=== PATIENT | male | born 1995 | race Caucasian/White ===

== ENCOUNTER 2018-06-28 17:41 | Emergency (ER) | payer BC, OTHER ==
[~2018-06-28] VITALS: Ht 172.7 cm; Wt 83.9 kg
--- OUTSIDE RECORDS SUMMARY | 2018-06-28 17:46 | XMS REPORT ---
Author Author Chang Osman [facility] Address [address] [place] [address] Care Team Providers Care Gluing Machine Operator Electronic Name Role Phone Chang Osman Unavailable PROBLEMS Type Condition ICD9-CM Code EST02-SZ Code Onset Dates Condition Status SNOMED Code Problem OCD (obsessive compulsive disorder) 300.3 Active 458521886 Problem Anxiety 300.00 Active 20137559 Problem Attention deficit disorder F98.8 Active 747431783 Problem Chest pain, unspecified R07.9 Active 54660345 Problem Chest wall pain R07.89 Active 685534086 Problem Syncope, unspecified syncope type R55 Active 250402381 Problem Atypical chest pain R07.89 Active 543244659 Problem Elevated LFTs R79.89 Active 855427014 Problem Shortness of breath R06.02 Active 903885883 ALLERGIES No Information ENCOUNTERS Encounter Location Date Diagnosis [facility] [place] [address] [place] [address] May, Medication management Z79.899 [facility] [place] [address] [place] [address] Apr, Medication management Z79.899 [facility] [place] [address] [place] [address] Mar, Medication management Z79.899 [facility] [place] [address] [place] [address] Feb, Medication management Z79.899 [facility] [place] [address] [place] [address] Dec, Medication management Z79.899 [facility] [place] [address] [place] [address] Nov, Medication management Z79.899 and Attention deficit disorder F98.8 [facility] [place] [address] [place] [address] Sep, Medication management Z79.899 and Attention deficit disorder F98.8 [facility] [address] [place] [address] Apr, Medication management Z79.899 and Attention deficit disorder F98.8 [facility] [address] [place] [address] Oct, [facility] [address] [place] [address] Oct, [facility] [address] [place] [address] Sep, Immunization due Z23 [facility] [address] [place] [address] June, Elevated LFTs R79.89 [facility] [place] [address] [place] [address] June, [facility] [place] [address] [place] [address] June, Elevated LFTs R79.89 [facility] [place] [address] [place] [address] May, [facility] [place] [address] [place] [address] May, Chest wall pain R07.89 ; Elevated liver function tests R79.89 and Elevated LFTs R79.89 [facility] [place] [address] [place] [address] Apr, Acute upper respiratory infection, unspecified J06.9 and Elevated LFTs R79.89 [facility] [place] [address] [place] [address] Feb, Elevated LFTs R79.89 [facility] [place] [address] [place] [address] Feb, Elevated LFTs R79.89 [facility] [address] [place] [address] Feb, Syncope, unspecified syncope type R55 ; Elevated liver enzymes R74.8 ; Atypical chest pain R07.89 and URI (upper respiratory infection) J06.9 [facility] [address] [place] [address] Jan, Chest pain, unspecified R07.9 and Shortness of breath R06.02 [facility] [address] [place] [address] Jan, [facility] [address] [place] [address] Jan, Elevated LFTs R79.89 [facility] [address] [place] [address] Jan, Elevated LFTs R79.89 [facility] [address] [place] [address] Jan, Syncope, unspecified syncope type R55 and Atypical chest pain R07.89 [facility] [address] [place] [address] Jan, Syncope, unspecified syncope type R55 [facility] [address] [place] [address] Jan, [facility] [place] [address] [place] [address] Jan, Syncope, unspecified syncope type R55 and Atypical chest pain R07.89 [facility] [address] [place] [address] Dec, [facility] [place] [address] [place] [address] Nov, [facility] [address] [place] [address] Nov, [facility] [address] [place] [address] Oct, Upper respiratory infections of unspecified site, Acute 465.9 [facility] [address] [place] [address] Jul, Upper respiratory infections of unspecified site, Acute 465.9 [facility] [place] [address] May, Backache, Unspecified 724.5 and Muscle Spasm 728.85 [facility] [address] [place] [address] May, [facility] [address] [place] [address] Apr, [facility] [address] [place] [address] Apr, Upper respiratory infections of unspecified site, Acute 465.9 [facility] [address] [place] [address] Apr, [facility] [address] [place] [address] Mar, [facility] [address] [place] [address] Mar, Upper respiratory infections of unspecified site, Acute 465.9 [facility] [address] [place] [address] Mar, [facility] [address] [place] [address] Mar, [facility] [address] [place] [address] Mar, [facility] [address] [place] [address] Feb, [facility] [address] [place] [address] Feb, [facility] [address] [place] [address] Feb, [facility] [address] [place] [address] Dec, Pharyngitis 462 and Attention deficit disorder 314.00 [facility] [address] [place] [address] Dec, [facility] [address] [place] [address] Dec, [facility] [address] [place] [address] Oct, Attention deficit disorder 314.00 [facility] [address] [place] [address] Sep, Attention deficit disorder 314.00 [facility] [address] [place] [address] Feb, [facility] [address] [place] [address] Dec, Routine or child health check V20.2 [facility] [address] [place] [address] Feb, Upper respiratory infections of unspecified site, Acute 465.9 [facility] [address] [place] [address] Dec, [facility] [address] [place] [address] Dec, [facility] [address] [place] [address] Dec, Routine or child health check V20.2 ; OCD (obsessive compulsive disorder) 300.3 and Anxiety 300.00 [facility] [address] [place] [address] 02 Nov, 2011 Upper respiratory infections of unspecified site, Acute 465.9 [facility] [address] [place] [address] Jul, Acute bronchospasm 519.11 [facility] [address] [place] [address] 13 Apr, 2011 [facility] [place] [address] [place] [address] Apr, [facility] [address] [place] [address] Mar, [facility] [address] [place] [address] Dec, [facility] [address] [place] [address] Dec, [facility] [address] [place] [address] May, [facility] [place] [address] [place] [address] May, [facility] [place] [address] [place] [address] Apr, [facility] [address] [place] [address] Mar, [facility] [address] [place] [address] Feb, [facility] [place] [address] [place] [address] Oct, [facility] [address] [place] [address] 14 Jul, 2009 [facility] [address] [place] [address] June, [facility] [address] [place] [address] Jan, [facility] [address] [place] [address] 15 Oct, 2008 IMMUNIZATIONS No Known Immunizations SOCIAL HISTORY Never Assessed REASON FOR VISIT refill adderall PLAN OF CARE VITAL SIGNS MEDICATIONS Medication Instructions Dosage Frequency Start Date End Date Duration Status Adderall 20 mg Orally BID 1 tablet 12h Apr, 30 days Active RESULTS No Results PROCEDURES No Known procedures INSTRUCTIONS MEDICATIONS ADMINISTERED No Known Medications MEDICAL (GENERAL) HISTORY Type Description Date Medical History anxiety with component of obsessive compulsive disorder Medical History chronic abdominal pain with constipation
--- OUTSIDE RECORDS SUMMARY | 2018-06-28 17:47 | XMS REPORT ---
Author Author Chang Osman Organization [employer] Address Unknown Phone Unavailable Care Team Providers Care Pegger Name Role Phone Chang Osman Unavailable Allergies No Known Allergies Problems Problem Type Condition Code Onset Dates Condition Status Problem OCD (obsessive compulsive disorder) 300.3 Active Problem Anxiety 300.00 Active Problem Attention deficit disorder 314.00 Active Medications No Known Medications Results No Known Results Summary Purpose [employer] Submission
--- OUTSIDE RECORDS SUMMARY | 2018-06-28 17:47 | XMS REPORT ---
Author Author Chang Osman [facility] [employer] Address Unknown Phone Unavailable Care Team Providers Care Orthodontic Assistant Name Role Phone Chang Osman Unavailable Allergies No Known Allergies Problems Problem Type Condition Code Onset Dates Condition Status Problem Syncope, unspecified syncope type R55 Active Problem Atypical chest pain R07.89 Active Problem Elevated LFTs R79.89 Active Problem Anxiety 300.00 Active Problem Attention deficit disorder 314.00 Active Problem OCD (obsessive compulsive disorder) 300.3 Active Medications No Known Medications Results No Known Results Summary Purpose [employer] Submission
--- OUTSIDE RECORDS SUMMARY | 2018-06-28 17:47 | XMS REPORT ---
Author Author Chang Osman [facility] [employer] Address Unknown Phone Unavailable Care Team Providers Care Billing Representative Name Role Phone Chang Osman Unavailable Allergies No Known Allergies Problems Problem Type Condition Code Onset Dates Condition Status Problem Syncope, unspecified syncope type R55 Active Problem Atypical chest pain R07.89 Active Problem Elevated LFTs R79.89 Active Problem Anxiety 300.00 Active Assessment Elevated LFTs R79.89 Active Problem Attention deficit disorder 314.00 Active Problem OCD (obsessive compulsive disorder) 300.3 Active Medications No Known Medications Results No Known Results Summary Purpose [employer] Submission
--- OUTSIDE RECORDS SUMMARY | 2018-06-28 17:47 | XMS REPORT ---
Author Author Chang Osman Organization [employer] Address Unknown Phone Unavailable Care Team Providers Care Portable Machine Sander Name Role Phone Chang Osman Unavailable Allergies No Known Allergies Problems Problem Type Condition Code Onset Dates Condition Status Problem Atypical chest pain R07.89 Active Problem Attention deficit disorder 314.00 Active Problem Syncope, unspecified syncope type R55 Active Problem OCD (obsessive compulsive disorder) 300.3 Active Problem Anxiety 300.00 Active Medications No Known Medications Results No Known Results Summary Purpose [employer] Submission
--- OUTSIDE RECORDS SUMMARY | 2018-06-28 17:47 | XMS REPORT ---
Author Author Chang Osman Organization [employer] Address Unknown Phone Unavailable Care Team Providers Care Supervisor Shed Workers Name Role Phone Chang Osman CP Unavailable Allergies, Adverse Reactions, Alerts Substance Reaction Event Type N.K.D.A. Info Not Available Non Drug Allergy Problems Problem Type Condition Code Onset Dates Condition Status Assessment Elevated liver enzymes R74.8 Active Problem Anxiety 300.00 Active Assessment Syncope, unspecified syncope type R55 Active Assessment URI (upper respiratory infection) J06.9 Active Assessment Atypical chest pain R07.89 Active Problem Shortness of breath R06.02 Active Problem Elevated LFTs R79.89 Active Problem Chest pain, unspecified R07.9 Active Problem Attention deficit disorder 314.00 Active Problem OCD (obsessive compulsive disorder) 300.3 Active Problem Syncope, unspecified syncope type R55 Active Problem Atypical chest pain R07.89 Active Medications Medication Code System Code Instructions Start Date End Date Status Dosage Ibuprofen [facility] [address]-95 200 MG Orally every 6 hrs 1 tablet as needed Procedures Procedure Coding System Code Date COMP PROFILE CPT-4 02184 Mar 08, 2015 EBV, Nuclear Ag CPT-4 66853 Mar 08, 2015 CBC CPT-4 24162 Mar 08, 2015 Cytomegalovirus (CMV). IgM CPT-4 01111 Mar 08, 2015 FADI CHANCE, Viral Capsid CPT-4 76278 Mar 08, 2015 Culture, Presumptive, Screening CPT-4 07182 Mar 08, 2015 Cytomegalovirus, IgG CPT-4 30388 Mar 08, 2015 Vital Signs Date/Time: Mar 08, 2015 Blood Pressure Systolic 132 mm Hg Height 69.5 in Weight 191.8 lbs Wt Percentile 92.73 % BMI 27.91 Index Temperature 98.5 F Blood Pressure Diastolic 72 mm Hg Ht Percentile 53.66 % BMIPercentile 93.69 % Results No Known Results Summary Purpose [employer] Submission
--- OUTSIDE RECORDS SUMMARY | 2018-06-28 17:47 | XMS REPORT ---
Author Author Chang Osman [facility] [employer] Address Unknown Phone Unavailable Care Team Providers Care Cloth Bolt Bander Name Role Phone Chang Osman CP Unavailable Allergies No Known Allergies Problems Problem Type Condition Code Onset Dates Condition Status Problem Anxiety 300.00 Active Assessment Elevated LFTs R79.89 Active Problem Shortness of breath R06.02 Active Problem Elevated LFTs R79.89 Active Problem Chest pain, unspecified R07.9 Active Problem Attention deficit disorder 314.00 Active Problem OCD (obsessive compulsive disorder) 300.3 Active Problem Syncope, unspecified syncope type R55 Active Problem Atypical chest pain R07.89 Active Medications No Known Medications Procedures Procedure Coding System Code Date ABDOMINAL LIMITED CPT-4 08438 Mar 20, 2015 Results No Known Results Summary Purpose [employer] Submission
--- OUTSIDE RECORDS SUMMARY | 2018-06-28 17:47 | XMS REPORT ---
Author Author Chang Osman [facility] [employer] Address Unknown Phone Unavailable Care Team Providers Care Tablet Machine Operator Name Role Phone Chang Osman Unavailable Allergies No Known Allergies Problems Problem Type Condition Code Onset Dates Condition Status Problem Atypical chest pain R07.89 Active Problem Attention deficit disorder 314.00 Active Problem Syncope, unspecified syncope type R55 Active Assessment Syncope, unspecified syncope type R55 Active Assessment Atypical chest pain R07.89 Active Problem OCD (obsessive compulsive disorder) 300.3 Active Problem Anxiety 300.00 Active Medications No Known Medications Results No Known Results Summary Purpose [employer] Submission
--- OUTSIDE RECORDS SUMMARY | 2018-06-28 17:47 | XMS REPORT ---
Author Author Chang Osman Organization [employer] Address Unknown Phone Unavailable Care Team Providers Care Computer Aided Design Technician Name Role Phone Chang Osman Unavailable Allergies No Known Allergies Problems Problem Type Condition Code Onset Dates Condition Status Problem OCD (obsessive compulsive disorder) 300.3 Active Problem Anxiety 300.00 Active Problem Attention deficit disorder 314.00 Active Medications Medication Code System Code Instructions Start Date End Date Status Dosage Biaxin [facility] [address]-65 500 MG Orally Twice a day Dec 01, 2014 1 tablet Results No Known Results Summary Purpose [employer]ClinicalWorks Submission
--- OUTSIDE RECORDS SUMMARY | 2018-06-28 17:47 | XMS REPORT ---
Author Author Chang Osman [facility] Address [address] [place] [address] Care Team Providers Care Director Of Retail Marketing Name Role Phone Chang Osman Unavailable PROBLEMS Type Condition ICD9-CM Code [id number] Code Onset Dates Condition Status SNOMED Code Problem OCD (obsessive compulsive disorder) 300.3 Active 274876175 Problem Attention deficit disorder F98.8 Active 275634616 Problem Anxiety 300.00 Active 18175962 Problem Chest wall pain R07.89 Active 667977468 Problem Chest pain, unspecified R07.9 Active 53559275 Problem Atypical chest pain R07.89 Active 749988907 Problem Syncope, unspecified syncope type R55 Active 005038444 Problem Shortness of breath R06.02 Active 288901203 Problem Elevated LFTs R79.89 Active [id number] ALLERGIES No Information ENCOUNTERS Encounter Location Date Diagnosis [facility] [address] [place] [address] Sep, Medication management Z79.899 and Attention deficit disorder F98.8 [facility] [address] [place] [address] Apr, Medication management Z79.899 and Attention deficit disorder F98.8 [facility] [address] [place] [address] Oct, [facility] [address] [place] [address] Oct, [facility] [address] [place] [address] Sep, Immunization due Z23 [facility] [address] [place] [address] June, Elevated LFTs R79.89 [facility] [address] [place] [address] June, [facility] [address] [place] [address] June, Elevated LFTs R79.89 [facility] [place] [address] May, [facility] [place] [address] May, Chest wall pain R07.89 ; Elevated liver function tests R79.89 and Elevated LFTs R79.89 [facility] [place] [address] Apr, Acute upper respiratory infection, unspecified J06.9 and Elevated LFTs R79.89 [facility] [place] [address] Feb, Elevated LFTs R79.89 [facility] [place] [address] Feb, Elevated LFTs R79.89 [facility] [place] [address] Feb, Syncope, unspecified syncope type R55 ; Elevated liver enzymes R74.8 ; Atypical chest pain R07.89 and URI (upper respiratory infection) J06.9 [facility] [place] [address] Jan, Chest pain, unspecified R07.9 and Shortness of breath R06.02 [facility] [place] [address] Jan, [facility] [place] [address] Jan, Elevated LFTs R79.89 [facility] [place] [address] Jan, Elevated LFTs R79.89 [facility] [place] [address] Jan, Syncope, unspecified syncope type R55 and Atypical chest pain R07.89 [facility] [place] [address] Jan, Syncope, unspecified syncope type R55 [facility] [place] [address] Jan, [facility] [place] [address] Jan, Syncope, unspecified syncope type R55 and Atypical chest pain R07.89 [facility] [address] [place] [address] Dec, [facility] [address] [place] [address] Nov, [facility] [address] [place] [address] Nov, [facility] [address] [place] [address] 24 Oct, 2014 Upper respiratory infections of unspecified site, Acute 465.9 [facility] [address] [place] [address] Jul, Upper respiratory infections of unspecified site, Acute 465.9 [facility] [address] [place] [address] May, Backache, Unspecified 724.5 and Muscle Spasm 728.85 [facility] [address] [place] [address] May, [facility] [address] [place] [address] Apr, [facility] [address] [place] [address] Apr, Upper respiratory infections of unspecified site, Acute 465.9 [facility] [address] [place] [address] Apr, [facility] [address] [place] [address] Mar, [facility] [address] [place] [address] Mar, Upper respiratory infections of unspecified site, Acute 465.9 [facility] [address] [place] [address] Mar, [facility] [address] [place] [address] Mar, [facility] [address] [place] [address] Mar, [facility] [address] [place] [address] Feb, [facility] [address] [place] [address] Feb, [facility] [address] [place] [address] Feb, [facility] [address] [place] [address] Dec, Pharyngitis 462 and Attention deficit disorder 314.00 [facility] [address] [place] [address] Dec, [facility] [address] [place] [address] Dec, [facility] [address] [place] [address] Oct, Attention deficit disorder 314.00 [facility] [address] [place] [address] Sep, Attention deficit disorder 314.00 [facility] [address] [place] [address] Feb, [facility] [address] [place] [address] Dec, Routine infant or child health check V20.2 [facility] [address] [place] [address] Feb, Upper respiratory infections of unspecified site, Acute 465.9 [facility] [address] [place] [address] Dec, [facility] [address] [place] [address] Dec, [facility] [address] [place] [address] Dec, Routine or child health check V20.2 ; OCD (obsessive compulsive disorder) 300.3 and Anxiety 300.00 [facility] [address] [place] [address] Nov, Upper respiratory infections of unspecified site, Acute 465.9 [facility] [address] [place] [address] Jul, Acute bronchospasm 519.11 [facility] [address] [place] [address] Apr, [facility] [address] [place] [address] Apr, [facility] [address] [place] [address] Mar, [facility] [address] [place] [address] Dec, [facility] [address] [place] [address] Dec, [facility] [address] [place] [address] May, [facility] [address] [place] [address] May, [facility] [address] [place] [address] Apr, [facility] [address] [place] [address] Mar, [facility] [address] [place] [address] Feb, [facility] [address] [place] [address] Oct, [facility] [address] [place] [address] 14 Jul, 2009 [facility] [address] [place] [address] June, [facility] [address] [place] [address] Jan, [facility] [address] [place] [address] 15 Oct, 2008 IMMUNIZATIONS No Known Immunizations [...]
--- OUTSIDE RECORDS SUMMARY | 2018-06-28 17:47 | XMS REPORT ---
Author Author Chang Osman Organization [employer] Address Unknown Phone Unavailable Care Team Providers Care Laborer [employer]oder Farm Name Role Phone Chang Osman CP Unavailable Allergies, Adverse Reactions, Alerts Substance Reaction Event Type N.K.D.A. Info Not Available Non Drug Allergy Problems Problem Type Condition ICD-9 Code Onset Dates Condition Status Problem OCD (obsessive compulsive disorder) 300.3 Active Problem Anxiety 300.00 Active Problem Attention deficit disorder 314.00 Active Assessment Pharyngitis 462 Active Assessment Attention deficit disorder 314.00 Active Medications Medication Code System Code Instructions Start Date End Date Status Dosage Methylphenidate HCl [facility] [address]-73 10 MG Orally Once a day Dec 28, 2013 Active 1 tablet Procedures Procedure Coding System Code Date OFFICE VISITEST PT CPT-4 28929 Jan 04, 2014 Vital Signs Date/Time: Jan 04, 2014 Blood Pressure Systolic 110 mm Hg Height 69.5 in Weight 184 lbs Wt Percentile 93.36 % BMI 26.78 Index Temperature 97.7 F Blood Pressure Diastolic 72 mm Hg Ht Percentile 61.38 % BMIPercentile 93.04 % Results No Known Results Summary Purpose eClinicalWorks Submission
--- OUTSIDE RECORDS SUMMARY | 2018-06-28 17:47 | XMS REPORT ---
Author Author Chang Osman [facility] Address [address] [place] [address] Care Team Providers Care Dandy Operator Name Role Phone Chang Osman Unavailable PROBLEMS Type Condition ICD9-CM Code [id number] Code Onset Dates Condition Status SNOMED Code Problem OCD (obsessive compulsive disorder) 300.3 Active 205764186 Problem Attention deficit disorder F98.8 Active 207154634 Problem Anxiety 300.00 Active 82521619 Problem Chest wall pain R07.89 Active 419480654 Problem Chest pain, unspecified R07.9 Active 19885327 Problem Atypical chest pain R07.89 Active 108999847 Problem Syncope, unspecified syncope type R55 Active 098020985 Problem Shortness of breath R06.02 Active 929469554 Problem Elevated LFTs R79.89 Active 409725379 ALLERGIES No Known Allergies ENCOUNTERS Encounter Location Date Diagnosis [facility] [address] [place] [address] Nov, Medication management Z79.899 and Attention deficit disorder F98.8 [facility] [address] [place] [address] Sep, Medication management Z79.899 and Attention deficit disorder F98.8 [facility] [address] [place] [address] Apr, Medication management Z79.899 and Attention deficit disorder F98.8 [facility] [address] [place] [address] Oct, [facility] [address] [place] [address] Oct, [facility] [address] [place] [address] Sep, Immunization due Z23 [facility] [address] [place] [address] June, Elevated LFTs R79.89 [facility] [place] [address] June, [facility] [place] [address] June, Elevated LFTs R79.89 [facility] [place] [address] May, [facility] [place] [address] May, Chest wall pain R07.89 ; Elevated liver function tests R79.89 and Elevated LFTs R79.89 [facility] [place] [address] Apr, Acute upper respiratory infection, unspecified J06.9 and Elevated LFTs R79.89 [facility] [place] [address] Feb, Elevated LFTs R79.89 [facility] [place] [address] Feb, Elevated LFTs R79.89 [facility] [place] [address] Feb, Syncope, unspecified syncope type R55 ; Elevated liver enzymes R74.8 ; Atypical chest pain R07.89 and URI (upper respiratory infection) J06.9 [facility] [place] [address] Jan, Chest pain, unspecified R07.9 and Shortness of breath R06.02 [facility] [place] [address] Jan, [facility] [place] [address] Jan, Elevated LFTs R79.89 [facility] [place] [address] Jan, Elevated LFTs R79.89 [facility] [place] [address] Jan, Syncope, unspecified syncope type R55 and Atypical chest pain R07.89 [facility] [place] [address] Jan, Syncope, unspecified syncope type R55 [facility] [place] [address] Jan, [facility] [address] [place] [address] Jan, Syncope, unspecified syncope type R55 and Atypical chest pain R07.89 [facility] [address] [place] [address] Dec, [facility] [address] [place] [address] Nov, [facility] [address] [place] [address] Nov, [facility] [address] [place] [address] 24 Oct, 2014 Upper respiratory infections of unspecified site, Acute 465.9 [facility] [address] [place] [address] Jul, Upper respiratory infections of unspecified site, Acute 465.9 [facility] [address] [place] [address] May, Backache, Unspecified 724.5 and Muscle Spasm 728.85 [facility] [address] [place] [address] May, [facility] [address] [place] [address] Apr, [facility] [address] [place] [address] Apr, Upper respiratory infections of unspecified site, Acute 465.9 [facility] [address] [place] [address] Apr, [facility] [address] [place] [address] Mar, [facility] [address] [place] [address] Mar, Upper respiratory infections of unspecified site, Acute 465.9 [facility] [address] [place] [address] Mar, [facility] [address] [place] [address] Mar, [facility] [address] [place] [address] Mar, [facility] [address] [place] [address] Feb, [facility] [address] [place] [address] Feb, [facility] [address] [place] [address] 14 Feb, 2014 [facility] [address] [place] [address] 13 Dec, 2013 Pharyngitis 462 and Attention deficit disorder 314.00 [facility] [address] [place] [address] Dec, [facility] [address] [place] [address] Dec, [facility] [address] [place] [address] Oct, Attention deficit disorder 314.00 [facility] [address] [place] [address] Sep, Attention deficit disorder 314.00 [facility] [address] [place] [address] Feb, [facility] [address] [place] [address] 14 Dec, 2012 Routine or child health check V20.2 [facility] [address] [place] [address] Feb, Upper respiratory infections of unspecified site, Acute 465.9 [facility] [address] [place] [address] Dec, [facility] [address] [place] [address] Dec, [facility] [address] [place] [address] Dec, Routine or child health check V20.2 ; OCD (obsessive compulsive disorder) 300.3 and Anxiety 300.00 [facility] [address] [place] [address] Nov, Upper respiratory infections of unspecified site, Acute 465.9 [facility] [address] [place] [address] Jul, Acute bronchospasm 519.11 [facility] [address] [place] [address] Apr, [facility] [address] [place] [address] Apr, [facility] [address] [place] [address] Mar, [facility] [address] [place] [address] Dec, [facility] [address] [place] [address] Dec, [facility] [address] [place] [address] May, [facility] [address] [place] [address] May, [facility] [address] [place] [address] Apr, [facility] [address] [place] [address] Mar, [facility] [address] [place] [address] Feb, [facility] [address] [place] [address] Oct, [facility] [address] [place] [address] Jul, [facility] [address] [place] [address] June, [facility] [address] [place] [address] Jan, [facility] [address] [place] [address] Oct, IMMUNIZATIONS No Known Immunizations SOCIAL HISTORY Never Assessed REASON FOR VISIT med ck PLAN OF CARE Activity Details Follow Up 6 Months Reason: VITAL SIGNS Weight 199.4 lbs 2017-11-22 Height 69.5 in 2017-11-22 Heart Rate 87 /min 2017-11-22 BMI 29.02 kg/m2 2017-11-22 Blood pressure systolic 153 mm Hg 2017-11-22 Blood pressure diastolic 81 mm Hg 2017-11-22 MEDICATIONS Medication Instructions Dosage Frequency Start Date End Date Duration Status Adderall 20 mg Orally BID 1 tablet 12h 23 Apr, 2017 30 days Active RESULTS No Results PROCEDURES No Known procedures INSTRUCTIONS MEDICATIONS ADMINISTERED No Known Medications MEDICAL (GENERAL) HISTORY Type Description Date Medical History anxiety with component of obsessive compulsive disorder Medical History chronic abdominal pain with constipation
--- OUTSIDE RECORDS SUMMARY | 2018-06-28 17:47 | XMS REPORT ---
Author Author Chang Osman [facility] eClinicalWorks Address Unknown Phone Unavailable Care Team Providers Care Slusher Operator Name Role Phone Chang Osman Unavailable [...] disorder) 300.3 Active Medications No Known Medications Procedures Procedure Coding System Code Date MONO CPT-4 93852 Feb 04, 2015 HEPATITIS ACUTE PANL CPT-4 54173 Feb 04, 2015 LIVER PROFILE CPT-4 61174 Feb 04, 2015 Results No Known Results Summary Purpose eClinicalWorks Submission
--- OUTSIDE RECORDS SUMMARY | 2018-06-28 17:47 | XMS REPORT ---
Author Author Chang Osman [facility] e[employer] Address Unknown Phone Unavailable Care Team Providers Care Salesperson Jewelry Name Role Phone Chang Osman CP Unavailable Allergies, Adverse Reactions, Alerts Substance Reaction Event Type N.K.D.A. Info Not Available Non Drug Allergy Problems Problem Type Condition Code Onset Dates Condition Status Problem OCD (obsessive compulsive disorder) 300.3 Active Problem Anxiety 300.00 Active Problem Attention deficit disorder 314.00 Active Assessment Upper respiratory infections of unspecified site, Acute 465.9 Active Medications Medication Code System Code Instructions Start Date End Date Status Dosage Promethazine VC/Codeine [facility] [address]-07 6.25-5-10 MG/5ML Orally every 6 hrs 5 ml as needed Augmentin [facility] [address]-11 875-125 MG Orally Twice a day 1 tablet Procedures Procedure Coding System Code Date OFFICE VISITEST PT CPT-4 64947 Nov 15, 2014 Vital Signs Date/Time: Nov 15, 2014 Temperature 97.4 F Height 69.5 in Weight 190 lbs Ht Percentile 55.3 % BMIPercentile 93.64 % Wt Percentile 92.92 % BMI 27.65 Index Results No Known Results Summary Purpose eClinicalWorks Submission
--- OUTSIDE RECORDS SUMMARY | 2018-06-28 17:48 | XMS REPORT ---
Author Author Chang Osman [employer] Address Unknown Phone Unavailable Care Team Providers Care Pediatric Nephrologist Name Role Phone Chang Osman Unavailable Allergies, Adverse Reactions, Alerts Substance Reaction [...] Anxiety 300.00 Active Medications No Known Medications Procedures Procedure Coding System Code Date T4 CPT-4 71078 Jan 30, 2015 TSH CPT-4 58710 Jan 30, 2015 COMP PROFILE CPT-4 17029 Jan 30, 2015 EKG WITH INTERPRETAT CPT-4 79413 Jan 30, 2015 CBC CPT-4 48922 Jan 30, 2015 OFFICE VISITEST PT CPT-4 27510 Jan 30, 2015 CHEST XRAY 2 VIEW CPT-4 79340 Jan 30, 2015 Vital Signs Date/Time: Jan 30, 2015 Blood Pressure Systolic 142 mm Hg Ht Percentile 54.04 % Height 69.5 in Weight 197 lbs BMI 28.67 Index Oximetry 99 % Cardiac Monitoring Heart Rate 63 /min Blood Pressure Diastolic 68 mm Hg BMIPercentile 95.15 % Wt Percentile 94.42 % Results Name Result Date Reference Range Unit Abnormality Flag T4 ----T4 8.0 [id number] 4.6-12.0 ?g/dL TSH ----TSH 1.65 [id number] 0.40-5.00 ?IU/ML CBC ----MCV 88.0 [id number] 80.0-94.0 FL ----HCT 47.0 [id number] 39.0-49.0 % ----MCHC 33.6 [id number] 32.0-36.0 G/DL ----MCH 29.6 [id number] 26.0-32.0 PG ----EO# 0.2 [id number] 0.0-0.2 X10^3/UL ----PLT 328 [id number] 130-400 X10^3 ----EO% 3.2 [id number] 0.0-3.0 % H ----RDW 12.3 [id number] 11.5-15.5 % ----MO# 0.6 [id number] 0.1-0.6 X10^3/UL H ----MO% 8.1 [id number] 1.7-9.3 % ----LY# 3.0 [id number] 1.2-3.4 X10^3/UL ----BA# 0.0 [id number] 0.0-0.1 X10^3/UL ----BA% 0.4 [id number] 0.0-1.0 % ----HGB 15.8 [id number] 13.8-17.0 G/DL ----RBC 5.34 [id number] 4.50-5.70 X10^6 ----MPV 10.3 [id number] 9.0-12.1 FL ----WBC 7.3 [id number] 4.0-10.0 X10^3/UL ----NE% 47.3 [id number] 42.2-75.2 % ----NE# 3.4 [id number] 1.4-6.5 X10^3/UL ----LY% 40.9 [id number] 20.5-51.1 % COMPREHENSIVE CHEM PROFILE ----SODIUM 142 [id number] 133-145 MMOL/L ----TOTAL BILI 0.43 74893413 0.00-1.00 MG/DL ----CHLORIDE 102 [id number] 96-108 MMOL/L ----POTASSIUM 3.7 [id number] 3.3-5.1 MMOL/L ----CALCIUM 9.3 [id number] 8.7-10.3 MG/DL ----AST/SGOT 34 [id number] 5-40 U/L ----CO2 26 [id number] 23-31 MMOL/L ----TOTAL PROTEIN 7.5 [id number] 5.9-8.4 G/DL ----eGFR If Am 154 [id number] ml/min/1.73m^2 ----ALBUMIN 4.9 [id number] 3.2-5.2 G/DL ----eGFR If Non Am 127 [id number] ml/min/1.73m^2 ----BUN 11 [id number] 5-18 MG/DL ----ALT/SGPT 85 [id number] 5-40 U/L H ----ALK PHOS 146 [id number] 34-114 U/L H ----CREATININE 0.8 [id number] 0.5-1.2 MG/DL ----GLUCOSE 91 [id number] 60-99 MG/DL ----GLOBULIN 2.6 [id number] 2.0-4.4 G/DL X ray : Chest 2 views Summary Purpose eClinicalWorks Submission
--- OUTSIDE RECORDS SUMMARY | 2018-06-28 17:48 | XMS REPORT ---
Author Author Chang Osman [facility] eClinicalWorks Address Unknown Phone Unavailable Care Team Providers Care Speed Operator Name Role Phone Chang Osman Unavailable Allergies No Known Allergies Problems Problem Type Condition Code Onset Dates Condition Status Assessment Immunization due Z23 Active Problem OCD (obsessive compulsive disorder) 300.3 Active Problem Anxiety 300.00 Active Problem Chest pain, unspecified R07.9 Active Problem Shortness of breath R06.02 Active Problem Chest wall pain R07.89 Active Problem Atypical chest pain R07.89 Active Problem Attention deficit disorder 314.00 Active Problem Elevated LFTs R79.89 Active Problem Syncope, unspecified syncope type R55 Active Medications No Known Medications Procedures Procedure Coding System Code Date Administration Fee 18yrs and up 1st injection CPT-4 71220 Oct 10, 2015 Menveo MCV4 CPT-4 47709 Oct 10, 2015 Results No Known Results Immunizations Vaccine Administration Date Menveo MCV4 Oct 10, 2015 Summary Purpose eClinicalWorks Submission
--- OUTSIDE RECORDS SUMMARY | 2018-06-28 17:48 | XMS REPORT ---
Author Author Chang Osman Organization [employer] Address Unknown Phone Unavailable Care Team Providers Care Plumber Cub Name Role Phone Chang Osman CP Unavailable [...] Instructions Start Date End Date Status Dosage Cefprozil [facility] [address]-77 500 MG Orally Twice a day 1 tablet Procedures Procedure Coding System Code Date OFFICE VISITEST PT CPT-4 98012 August 01, 2014 Vital Signs Date/Time: August 01, 2014 Blood Pressure Systolic 112 mm Hg Height 69.5 in Weight 192 lbs Wt Percentile 94.14 % BMI 27.94 Index Temperature 98 F Blood Pressure Diastolic 84 mm Hg Ht Percentile 56.79 % BMIPercentile 94.52 % Results No Known Results Summary Purpose eClinicalWorks Submission
--- OUTSIDE RECORDS SUMMARY | 2018-06-28 17:48 | XMS REPORT ---
Author Author Chang Osman Organization [employer] Address Unknown Phone Unavailable Care Team Providers Care Waste Reclaimer Name Role Phone Chang Osman CP Unavailable Allergies, Adverse Reactions, Alerts Substance Reaction Event Type N.K.D.A. Info Not Available Non Drug Allergy Problems Problem Type Condition Code Onset Dates Condition Status Assessment Shortness of breath R06.02 Active Problem Anxiety 300.00 Active Assessment Chest pain, unspecified R07.9 Active Problem Shortness of breath R06.02 Active Problem Elevated LFTs R79.89 Active Problem Chest pain, unspecified R07.9 Active Problem Attention deficit disorder 314.00 Active Problem OCD (obsessive compulsive disorder) 300.3 Active Problem Syncope, unspecified syncope type R55 Active Problem Atypical chest pain R07.89 Active Medications No Known Medications Results No Known Results Summary Purpose eClinicalWorks Submission
--- OUTSIDE RECORDS SUMMARY | 2018-06-28 17:48 | XMS REPORT ---
Author Author Chang Osman Organization [employer] Address Unknown Phone Unavailable Care Team Providers Care Radiation Physicist Name Role Phone Chang Osman Unavailable Allergies No Known Allergies Problems Problem Type Condition ICD-9 Code Onset Dates Condition Status Problem OCD (obsessive compulsive disorder) 300.3 Active Problem Anxiety 300.00 Active Problem Attention deficit disorder 314.00 Active Assessment Upper respiratory infections of unspecified site, Acute 465.9 Active Medications Medication Code System Code Instructions Start Date End Date Status Dosage Augmentin [facility] [address]-51 875-125 MG Orally Twice a day 1 tablet Medrol (Seven) [facility] [address]-15 4 mg Orally as directed as directed Procedures Procedure Coding System Code Date OFFICE VISITEST PT CPT-4 88034 Apr 17, 2014 Vital Signs Date/Time: Apr 17, 2014 Temperature 97.9 F Height 69.5 in Weight 186 lbs Ht Percentile 59.2 % BMIPercentile 93.28 % Wt Percentile 93.24 % BMI 27.07 Index Results No Known Results Summary Purpose eClinicalWorks Submission
--- OUTSIDE RECORDS SUMMARY | 2018-06-28 17:48 | XMS REPORT ---
Author Author Chang Osman [facility] eClinicalWorks Address Unknown Phone Unavailable Care Team Providers Care Real Estate Broker Name Role Phone Chang Osman Unavailable Allergies [...] Syncope, unspecified syncope type R55 Active Medications Medication Code System Code Instructions Start Date End Date Status Dosage Augmentin [facility] [address]-84 875-125 MG Orally every 12 hrs Nov 16, 2015 1 tablet Results No Known Results Summary Purpose eClinicalWorks Submission
--- OUTSIDE RECORDS SUMMARY | 2018-06-28 17:48 | XMS REPORT ---
Author Author Chang Osman [facility] Address [address] [place] [address] Care Team Providers Care Senior Site Manager Name Role Phone Chang Osman Unavailable PROBLEMS Type Condition ICD9-CM Code [id number] Code Onset Dates Condition Status SNOMED Code Problem Anxiety 300.00 Active 83911127 Problem Attention deficit disorder F98.8 Active 555638941 Problem OCD (obsessive compulsive disorder) 300.3 Active 988617968 Problem Chest wall pain R07.89 Active 184069832 Problem Chest pain, unspecified R07.9 Active 11120819 Problem Syncope, unspecified syncope type R55 Active 375216033 Problem Atypical chest pain R07.89 Active 824962103 Problem Shortness of breath R06.02 Active 591757880 Problem Elevated LFTs R79.89 Active 184425514 ALLERGIES No Known Allergies ENCOUNTERS Encounter Location Date Diagnosis [facility] [address] [place] [id number] Apr, Medication management Z79.899 and Attention deficit disorder F98.8 [facility] [place] [address] [place] [address] Oct, [facility] [address] [place] [address] Oct, [facility] [address] [place] [address] Sep, Immunization due Z23 [facility] [address] [place] [address] June, Elevated LFTs R79.89 [facility] [address] [place] [address] June, [facility] [address] [place] [address] June, Elevated LFTs R79.89 [facility] [address] [place] [address] May, [facility] [address] [place] [address] May, Chest wall pain R07.89 ; Elevated liver function tests R79.89 and Elevated LFTs R79.89 [facility] [address] [place] [address] Apr, Acute upper respiratory infection, unspecified J06.9 and Elevated LFTs R79.89 [facility] [address] [place] [address] Feb, Elevated LFTs R79.89 [facility] [place] [address] Feb, Elevated LFTs R79.89 [facility] [place] [address] Feb, Syncope, unspecified syncope type R55 ; Elevated liver enzymes R74.8 ; Atypical chest pain R07.89 and URI (upper respiratory infection) J06.9 [facility] [place] [address] Jan, Chest pain, unspecified R07.9 and Shortness of breath R06.02 [facility] [place] [address] Jan, [facility] [address] [place] [address] Jan, Elevated LFTs R79.89 [facility] [place] [address] Jan, Elevated LFTs R79.89 [facility] [place] [address] Jan, Syncope, unspecified syncope type R55 and Atypical chest pain R07.89 [facility] [place] [address] Jan, Syncope, unspecified syncope type R55 [facility] [address] [place] [address] Jan, [facility] [place] [address] Jan, Syncope, unspecified syncope type R55 and Atypical chest pain R07.89 [facility] [place] [address] [place] [address] Dec, [facility] [place] [address] Nov, [facility] [address] [place] [address] Nov, [facility] [address] [place] [address] Oct, Upper respiratory infections of unspecified site, Acute 465.9 [facility] [address] [place] [address] Jul, Upper respiratory infections of unspecified site, Acute 465.9 [facility] [address] [place] [id number] May, Backache, Unspecified 724.5 and Muscle Spasm 728.85 [facility] [address] [place] [address] May, [facility] [address] [place] [address] Apr, [facility] [address] [place] [address] Apr, Upper respiratory infections of unspecified site, Acute 465.9 [facility] [address] [place] [address] Apr, [facility] [address] [place] [address] Mar, [facility] [address] [place] [address] Mar, Upper respiratory infections of unspecified site, Acute 465.9 [facility] [address] [place] [address] Mar, [facility] [address] [place] [address] Mar, [facility] [address] [place] [address] Mar, [facility] [address] [place] [address] Feb, [facility] [address] [place] [address] Feb, [facility] [address] [place] [address] Feb, [facility] [address] [place] [address] Dec, Pharyngitis 462 and Attention deficit disorder 314.00 [facility] [address] [place] [address] Dec, [facility] [address] [place] [address] Dec, [facility] [address] [place] [address] Oct, Attention deficit disorder 314.00 [facility] [address] [place] [address] Sep, Attention deficit disorder 314.00 [facility] [address] [place] [address] Feb, [facility] [address] [place] [address] 14 Dec, 2012 Routine or child health check V20.2 [facility] [address] [place] [address] Feb, Upper respiratory infections of unspecified site, Acute 465.9 [facility] [address] [place] [address] Dec, [facility] [address] [place] [address] Dec, [facility] [address] [place] [address] Dec, Routine or child health check V20.2 ; OCD (obsessive compulsive disorder) 300.3 and Anxiety 300.00 [facility] [address] [place] [address] Nov, Upper respiratory infections of unspecified site, Acute 465.9 [facility] [address] [place] [address] Jul, Acute bronchospasm 519.11 [facility] [address] [place] [address] Apr, [facility] [address] [place] [address] Apr, [facility] [address] [place] [address] Mar, [facility] [address] [place] [address] Dec, [facility] [address] [place] [address] Dec, [facility] [address] [place] [address] May, [facility] [address] [place] [address] May, [facility] [address] [place] [address] 15 Apr, 2010 [facility] [address] [place] [address] 16 Mar, 2010 [facility] [address] [place] [address] Feb, [facility] [address] [place] [address] 27 Oct, 2009 [facility] [address] [place] [address] 14 Jul, 2009 [facility] [address] [place] [address] June, [facility] [address] [place] [address] Jan, [facility] [place] [address] [place] [address] Oct, IMMUNIZATIONS No Known Immunizations SOCIAL HISTORY Never Assessed REASON FOR VISIT discuss meds PLAN OF CARE Activity Details Follow Up 4 Weeks Reason: VITAL SIGNS Weight 184.6 lbs 2017-05-14 Height 69.5 in 2017-05-14 Heart Rate 74 /min 2017-05-14 BMI 26.87 kg/m2 2017-05-14 Blood pressure systolic 132 mm Hg 2017-05-14 Blood pressure diastolic 78 mm Hg 2017-05-14 MEDICATIONS Medication Instructions Dosage Frequency Start Date End Date Duration Status Adderall 10 MG Orally BID 1 tablet 12h Apr, 30 days Active Adderall 20 mg Orally BID 1 tablet 12h Apr, 30 days Active RESULTS No Results PROCEDURES No Known procedures INSTRUCTIONS MEDICATIONS ADMINISTERED No Known Medications MEDICAL (GENERAL) HISTORY Type Description Date Medical History anxiety with component of obsessive compulsive disorder Medical History chronic abdominal pain with constipation
--- OUTSIDE RECORDS SUMMARY | 2018-06-28 17:48 | XMS REPORT ---
Author Author Chang Osman [facility] eClinicalWorks Address Unknown Phone Unavailable Care Team Providers Care Water Plant Maintenance Mechanic Name Role Phone Chang Osman Unavailable Allergies [...] Date End Date Status Dosage Methylphenidate HCl [facility] [address]-09 10 MG Orally Once a day Dec 28, 2013 1 tablet Results No Known Results Summary Purpose eClinicalWorks Submission
--- OUTSIDE RECORDS SUMMARY | 2018-06-28 17:48 | XMS REPORT ---
Author Author Chang Osman Organization [employer] Address Unknown Phone Unavailable Care Team Providers Care Print Machine Operator Name Role Phone Chang Osman Unavailable Allergies No Known Allergies Problems Problem Type Condition ICD-9 Code Onset Dates Condition Status Problem OCD (obsessive compulsive disorder) 300.3 Active Problem Anxiety 300.00 Active Problem Attention deficit disorder 314.00 Active Medications No Known Medications Results No Known Results Summary Purpose eClinicalWorks Submission
--- OUTSIDE RECORDS SUMMARY | 2018-06-28 17:48 | XMS REPORT ---
Author Author Chang Osman [facility] eClinicalWorks Address Unknown Phone Unavailable Care Team Providers Care Clothing Patternmaker Name Role Phone Chang Osman Unavailable Allergies No Known Allergies Problems Problem Type Condition Code Onset Dates Condition Status Problem Atypical chest pain R07.89 Active Problem Attention deficit disorder 314.00 Active Problem Syncope, unspecified syncope type R55 Active Assessment Syncope, unspecified syncope type R55 Active Problem OCD (obsessive compulsive disorder) 300.3 Active Problem Anxiety 300.00 Active Medications No Known Medications Procedures Procedure Coding System Code Date HOLTER MONITOR OFF CPT-4 65862 Jan 31, 2015 Results No Known Results Summary Purpose eClinicalWorks Submission
--- OUTSIDE RECORDS SUMMARY | 2018-06-28 17:48 | XMS REPORT ---
Author Author Chang Osman Organization [employer] Address Unknown Phone Unavailable Care Team Providers Care Software Specialist Name Role Phone Chang Osman Unavailable Allergies No Known Allergies Problems Problem Type Condition Code Onset Dates Condition Status Problem OCD (obsessive compulsive disorder) 300.3 Active Problem Anxiety 300.00 Active Problem Attention deficit disorder 314.00 Active Medications No Known Medications Results No Known Results Summary Purpose eClinicalWorks Submission
--- OUTSIDE RECORDS SUMMARY | 2018-06-28 17:49 | XMS REPORT ---
Author Author Chang Osman [facility] eClinicalWorks Address Unknown Phone Unavailable Care Team Providers Care Provider Relations Representative Name Role Phone Chang Osman Unavailable Allergies, Adverse Reactions, Alerts Substance Reaction Event Type N.K.D.A. Info Not Available Non Drug Allergy Problems Problem Type Condition Code Onset Dates Condition Status Problem OCD (obsessive compulsive disorder) 300.3 Active Problem Anxiety 300.00 Active Problem Attention deficit disorder 314.00 Active Assessment Backache, Unspecified 724.5 Active Assessment Muscle Spasm 728.85 Active Medications No Known Medications Procedures Procedure Coding System Code Date SPINE CERVICAL CPT-4 57548 June 12, 2014 SPINE THORACIC 2 CPT-4 79027 June 12, 2014 OFFICE VISITEST PT CPT-4 25079 June 12, 2014 Vital Signs Date/Time: June 12, 2014 Temperature 97.7 F Height 69.5 in Weight 188 lbs Ht Percentile 57.93 % BMIPercentile 93.65 % Wt Percentile 93.39 % BMI 27.36 Index Results No Known Results Summary Purpose eClinicalWorks Submission
--- OUTSIDE RECORDS SUMMARY | 2018-06-28 17:49 | XMS REPORT ---
Author Author Chang Osman [facility] eClinicalWorks Address Unknown Phone Unavailable Care Team Providers Care Vending Technician Name Role Phone Chang Osman CP Unavailable [...] Instructions Start Date End Date Status Dosage Levofloxacin [facility] [address]-19 500 MG Orally Once a day 1 tablet Augmentin [facility] [address]-45 875-125 MG Orally Twice a day 1 tablet Procedures Procedure Coding System Code Date OFFICE VISITEST PT CPT-4 94003 April 24, 2014 Vital Signs Date/Time: April 24, 2014 Temperature 98.2 F Height 69.5 in Weight 185 lbs Ht Percentile 59.2 % BMIPercentile 92.97 % Wt Percentile 92.91 % BMI 26.93 Index Results No Known Results Summary Purpose eClinicalWorks Submission
--- OUTSIDE RECORDS SUMMARY | 2018-06-28 17:49 | XMS REPORT ---
Author Author Chang Osman Organization [employer] Address Unknown Phone Unavailable Care Team Providers Care Front Sight Attacher Name Role Phone Chang Osman Unavailable Allergies No Known Allergies Problems Problem Type Condition ICD-9 Code Onset Dates Condition Status Problem OCD (obsessive compulsive disorder) 300.3 Active Problem Anxiety 300.00 Active Problem Attention deficit disorder 314.00 Active Medications Medication Code System Code Instructions Start Date End Date Status Dosage Tamiflu [facility] [address]-02 75 mg Orally Twice a day Mar 07, 2014 Active 1 capsule Results No Known Results Summary Purpose eClinicalWorks Submission
--- OUTSIDE RECORDS SUMMARY | 2018-06-28 17:49 | XMS REPORT ---
Author Author Chang Osman Organization [employer] Address Unknown Phone Unavailable Care Team Providers Care Charging Board Operator Name Role Phone Chang Osman Unavailable Allergies No Known Allergies Problems Problem Type Condition ICD-9 Code Onset Dates Condition Status Problem OCD (obsessive compulsive disorder) 300.3 Active Problem Anxiety 300.00 Active Problem Attention deficit disorder 314.00 Active Medications No Known Medications Results No Known Results Summary Purpose eClinicalWorks Submission
--- OUTSIDE RECORDS SUMMARY | 2018-06-28 17:49 | XMS REPORT ---
Author Author Chang Osman Organization [employer]Works Address Unknown Phone Unavailable Care Team Providers Care Watershed Engineer Name Role Phone Chang Osman Unavailable Allergies No Known Allergies Problems Problem Type Condition Code Onset Dates Condition Status Problem OCD (obsessive compulsive disorder) 300.3 Active Problem Anxiety 300.00 Active Problem Attention deficit disorder 314.00 Active Medications No Known Medications Results No Known Results Summary Purpose eClinicalWorks Submission
--- OUTSIDE RECORDS SUMMARY | 2018-06-28 17:49 | XMS REPORT ---
Author Author Chang Osman Organization [employer] Address Unknown Phone Unavailable Care Team Providers Care Nail Puller Name Role Phone Chang Osman Unavailable Allergies No Known Allergies Problems Problem Type Condition ICD-9 Code Onset Dates Condition Status Problem OCD (obsessive compulsive disorder) 300.3 Active Problem Anxiety 300.00 Active Problem Attention deficit disorder 314.00 Active Medications No Known Medications Results No Known Results Summary Purpose eClinicalWorks Submission
--- NOTE | 2018-06-28 17:53 | NUR ---
C-collar placed at this time
[2018-06-28] MEDS ORDERED: LACTATED RINGERS 1,000 ML IV ONE (17:57)
--- NOTE | 2018-06-28 17:59 | ED Trauma-Multisystem ---
General Chief Complaint: Trauma-Non Activation Stated Complaint: R HAND LAC, PASSED OUT Nursing Triage Note: WHILE LOADING A LAWNMOWER PT STATES THE LAWNMOWER ROLLED LANDING ON TOP OF HIM. UNKNOWN LOC AT THE TIME BUT DID HAVE LOC AFTER FOR ABOUT 30SEC. PT HAS A LACERATION TO RIGHT THUMB AND WRIST. COMPLAINS OF HEAD AND RIGHT HAND PAIN. DENIES NECK PAIN AT THIS TIME. Source of Information: Patient History of Present Illness Date Seen by Provider: June 28, 2018 Time Seen by Provider: 17:50 Initial Comments PT ARRIVES VIA POV STATES HE WAS ON A RIDING LAWNMOWER, AND TRYING TO LOAD IT--GOING UP A RAMP-- AND IT FELL BACKWARDS AND LANDED ON TOP OF HIM FRIEND PULLED IT OFF HIM HIT THE BACK OF HIS HEAD STOOD UP FOR A COUPLE OF SECONDS, STARTED "SEEING STARS" AND SAT DOWN AND THEN PASSED OUT FOR APPROXIMATELY 30 SECONDS C/O PAIN TO BACK OF HEAD ALSO C/O PAIN AND LACERATION TO RIGHT HAND DENIES CHEST PAIN OR SHORTNESS OF BREATH DENIES VISION CHANGES DENIES NAUSEA/VOMITING DENIES NECK OR BACK PAIN DENIES ABDOMINAL PAIN DENIES PARESTHESIAS OR MOTOR DEFICITS DENIES PAIN ANYWHERE ELSE OCCURRED JUST PRIOR TO ARRIVAL AT HOME LAST TETANUS--UNSURE, THINKS A FEW YEARS AGO. PT IS [employer] Allergies and Home Medications Allergies Coded Allergies: No Known Drug Allergies (Unverified , 06/28/18) Patient Home Medication List Home Medication List Reviewed: Yes Review of Systems Review of Systems Constitutional: see HPI Eyes: No Symptoms Reported Ears: No Symptoms Reported Nose: No Symptoms Reported Mouth: No Symptoms Reported Throat: No Symptoms to Report Respiratory: no symptoms reported Cardiovascular: No Symptoms Reported Gastrointestinal: no symptoms reported Genitourinary: no symptoms reported Musculoskeletal: see HPI Skin: see HPI Psychiatric/Neurological: See HPI Past Rvvkziq-Kpaass-Wdumjh Hx Patient Social History Recent Foreign Travel: No Contact w/Someone Who Travel: No Recent Infectious Disease Expo: No Immunizations Up To Date Tetanus Booster (TDap): More than 5yrs Past Medical History Surgeries: Yes (EGD) Adenoidectomy, Tonsillectomy Respiratory: No Cardiac: No Neurological: No Genitourinary: No Gastrointestinal: No Musculoskeletal: No Endocrine: No HEENT: Yes (S/P T&A) Tonsilitis Cancer: No Psychosocial: No Integumentary: No Blood Disorders: No Physical Exam Vital Signs Vital Signs - First Documented 06/28/18 17:45 Temp 97.8 Pulse 80 Resp 16 B/P (MAP) 138/77 (97) Pulse Ox 99 O2 Delivery Room Air Height, Weight, BMI Height: 5'8.00" Weight: 185lbs. oz. 83.176638dw; BMI Method:Stated General Appearance: No Apparent Distress, WD/WN Head: No Evidence of Injury, Tenderness (TO OCCIPUT) Ears, Nose, Throat: Hearing Grossly Normal, No Evidence of ENT Injury, No Dental Injury Neck: Full Range of Motion, Normal Inspection, Non Tender, Supple Cardiovascular: Regular Rate, Rhythm, No Edema, No JVD, No Murmur, Normal Peripheral Pulses Respiratory: Chest Non Tender, Normal Breath Sounds, No Accessory Muscle Use, No Respiratory Distress Gastrointestinal: Normal Bowel Sounds, No Organomegaly, No Pulsatile Mass, Non Tender, Soft Back: Normal Inspection, No CVA Tenderness, No Vertebral Tenderness Extremity: Normal Capillary Refill, No Calf Tenderness, No Pedal Edema, Other ( TENDERNESS TO RIGHT HAND. HAS A FEW VERY SUPERFICIAL ABRASIONS TO DORSUM OF RIGHT HAND, WITH VERY SUPERFICIAL C-SHAPED FLAP LACERATION TO PALMAR ASPECT OF RIGHT HAND AT BASE OF 5TH FINGER--1 1/2 CM DIAMETER. MOTOR/SENSORY/VASCULAR INTACT. ) Neurologic/Psychiatric: Alert, Oriented x3, No Motor/Sensory Deficits, Normal Mood/Affect, dual hose cementer II-XII Norm as Tested Skin: Normal Color, Warm/Dry, Other (ABRASIONS/LACERATION TO RIGHT HAND ABOVE) [place] Coma Score Best Eye Response (Millie): (4) Open Spontaneously Best Verbal Response (Millie): (5) Oriented Best Motor Response ([place]): (6) Obeys Commands [place] Total: 15 Progress/Results/Core Measures Results/Orders Lab Results Laboratory Tests Test 06/28/18 16:31 06/28/18 17:58 Range/Units Prothrombin Time 13.0 12.2-14.7 SEC INR Comment 1.0 0.8-1.4 Activated Partial Thromboplast Time 25 24-35 SEC White Blood Count 9.8 4.3-11.0 10^3/uL Red Blood Count 5.32 4.35-5.85 10^6/uL Hemoglobin 16.1 13.3-17.7 G/DL Hematocrit 46 40-54 % Mean Corpuscular Volume 87 80-99 FL Mean Corpuscular Hemoglobin 30 25-34 PG Mean Corpuscular Hemoglobin Concent 35 32-36 G/DL Red Cell Distribution Width 12.2 10.0-14.5 % Platelet Count 360 130-400 10^3/uL Mean Platelet Volume 10.1 7.4-10.4 FL Neutrophils (%) (Auto) 47 42-75 % Lymphocytes (%) (Auto) 40 12-44 % Monocytes (%) (Auto) 10 0-12 % Eosinophils (%) (Auto) 4 0-10 % Basophils (%) (Auto) 1 0-10 % Neutrophils # (Auto) 4.6 1.8-7.8 X 10^3 Lymphocytes # (Auto) 3.9 1.0-4.0 X 10^3 Monocytes # (Auto) 0.9 0.0-1.0 X 10^3 Eosinophils # (Auto) 0.3 0.0-0.3 10^3/uL Basophils # (Auto) 0.1 0.0-0.1 10^3/uL Sodium Level 139 135-145 MMOL/L Potassium Level 3.3 L 3.6-5.0 MMOL/L Chloride Level 105 98-107 MMOL/L Carbon Dioxide Level 21 21-32 MMOL/L Anion Gap 13 5-14 MMOL/L Blood Urea Nitrogen 16 7-18 MG/DL Creatinine 1.04 0.60-1.30 MG/DL Estimat Glomerular Filtration Rate > 60 BUN/Creatinine Ratio 15 Glucose Level 111 H 70-105 MG/DL Calcium Level 9.7 8.5-10.1 MG/DL Corrected Calcium 8.5-10.1 MG/DL Total Bilirubin 0.5 0.1-1.0 MG/DL Aspartate Amino Transf (AST/SGOT) 61 H 5-34 U/L Alanine Aminotransferase (ALT/SGPT) 158 H 0-55 U/L Alkaline Phosphatase 81 40-136 U/L Total Protein 7.9 6.4-8.2 GM/DL Albumin 4.7 H 3.2-4.5 GM/DL Serum Alcohol < 10 <10 MG/DL My Orders Orders - KIMO CHAMBERS DO Ed Iv/Invasive Line Start (06/28/18 17:57) Monitor-Rhythm Ecg Trace Only (06/28/18 17:57) Ct Head/Cervical Spine Wo (06/28/18 17:57) Chest 1 View, Ap/Pa Only (06/28/18 17:57) Hand, Right, 3 Views (06/28/18 17:57) Alcohol (06/28/18 17:57) Cbc With Automated Diff (06/28/18 17:57) Comprehensive Metabolic Panel (06/28/18 17:57) Drug Screen Stat (Urine) (06/28/18 17:57) Protime With Inr (06/28/18 17:57) Partial Thromboplastin Time (06/28/18 17:57) Ua Culture If Indicated (06/28/18 17:57) Ed Iv/Invasive Line Start (06/28/18 17:57) Lactated Ringers (Lr 1000 Ml Iv Solution (06/28/18 17:57) Dipht,Pertuss(Acell),Tet Adult (Boostrix (06/28/18 18:00) Vital Signs/I&O 06/28/18 17:45 Temp 97.8 Pulse 80 Resp 16 B/P (MAP) 138/77 (97) Pulse Ox 99 O2 Delivery Room Air Blood Pressure Mean: 97 Progress Progress Note : Progress Note CERVICAL COLLAR IMMEDIATELY PLACED ON ARRIVAL COLLAR REMOVED AT 1840, ON RECEIVING RADIOLOGIST REPORT OF NO ACUTE PROCESS/ INJURY NOTED . WOUND TO RIGHT PALM IS A VERY SUPERFICIAL FLAP--FLAP IS TOO THIN TO HOLD A SUTURE DRESSED WITH BACTROBAN AND GAUZE Diagnostic Imaging Comments CT HEAD/CERVICAL SPINE--NO ACUTE PROCESS CXR--NO ACUTE PROCESS XRAYS RIGHT HAND--NO ACUTE PROCESS ALL PER RADIOLOGIST REPORTS AT 1839 Reviewed: Reviewed by Me Departure Impression Primary Impression: Contact with powered lawnmower as cause of accidental injury at home as place of occurrence Additional Impressions: Closed head injury with brief loss of consciousness Laceration of right palm ABRASIONS AND CONTUSION RIGHT HAND Xttgzkqhrr-pydixcffo-vajaaie (DPT) vaccination administered at current visit Disposition: HOME, SELF-CARE Condition: Stable Departure-Patient Inst. Referrals: [facility] CIPRIANO SKAGGS MD (PCP) Primary Care Physician Patient Instructions: Concussion, Adult (DC), Contusion (DC), Skin Abrasions ( DC), Wound Care (DC) Add. Discharge Instructions: CLEAN WOUNDS TWICE A DAY WITH ANTIBACTERIAL SOAP AND WATER, APPLY ANTIBIOTIC OINTMENT AND FRESH DRESSING TWICE A DAY ICE TO SORE AREAS AT 20 MINUTE INTERVALS ELEVATE HAND MUCH POSSIBLE TYLENOL NEEDED FOR PAIN FOLLOW UP WITH [facility] NEEDED All discharge instructions reviewed with patient and/or family. Voiced understanding. KIMO CHAMBERS DO June 28, 2018 17:59
[2018-06-28] MEDS ORDERED: TETANUS,DIPTH,PERTUSS P/F (BOOSTRIX) 0.5 ML VIAL IM ONE (18:00)
[2018-06-28 18:07] LABS: BASOPHILS # (AUTO) 0.1 10^3/uL (0.0-0.1); BASOPHILS % (AUTO) 1 % (0-10); EOSINOPHILS # (AUTO) 0.3 10^3/uL (0.0-0.3); EOSINOPHILS % (AUTO) 4 % (0-10); HEMATOCRIT 46 % (40-54); HEMOGLOBIN 16.1 G/DL (13.3-17.7); LYMPHOCYTES # (AUTO) 3.9 X 10^3 (1.0-4.0); LYMPHOCYTES % (AUTO) 40 % (12-44); MEAN CORPUSCULAR HEMOGLOBIN 30 PG (25-34); MEAN CORPUSCULAR HGB CONC 35 G/DL (32-36); MEAN CORPUSCULAR VOLUME 87 FL (80-99); MEAN PLATELET VOLUME 10.1 FL (7.4-10.4); MONOCYTES # (AUTO) 0.9 X 10^3 (0.0-1.0); MONOCYTES % (AUTO) 10 % (0-12); NEUTROPHILS # (AUTO) 4.6 X 10^3 (1.8-7.8); NEUTROPHILS % (AUTO) 47 % (42-75); PLATELET COUNT 360 10^3/uL (130-400); RED CELL DISTRIBUTION WIDTH 12.2 % (10.0-14.5); WHITE BLOOD COUNT 9.8 10^3/uL (4.3-11.0)
--- NOTE | 2018-06-28 18:23 | Diagnostic Imaging Report ---
INDICATION: Chest injury. EXAMINATION: Portable supine image of the chest is obtained. Right costophrenic sulcus is not fully included. COMPARISON: No previous study is available for comparison at this time. FINDINGS: Heart size and pulmonary vasculature are within normal limits, and the lungs are clear, bilaterally. IMPRESSION: Unremarkable chest. Dictated by: Dictated on workstation # [id number]
--- NOTE | 2018-06-28 18:26 | Diagnostic Imaging Report ---
INDICATION: Right hand injury TECHNIQUE: AP, oblique and lateral views of the right hand are obtained. FINDINGS: No acute fracture or dislocation is identified. No abnormal lytic or sclerotic focus is seen, and there is no radiopaque foreign body. IMPRESSION: No acute abnormality. Dictated by: Dictated on workstation # [id number]
[2018-06-28 18:27] LABS: ALANINE AMINOTRANSFERASE 158 U/L (0-55); ALBUMIN 4.7 GM/DL (3.2-4.5); ALKALINE PHOSPHATASE 81 U/L (40-136); BILIRUBIN,TOTAL 0.5 MG/DL (0.1-1.0); BUN/CREATININE RATIO 15; CALCIUM 9.7 MG/DL (8.5-10.1); CARBON DIOXIDE 21 MMOL/L (21-32); CHLORIDE 105 MMOL/L (98-107); CREATININE SERUM 1.04 MG/DL (0.60-1.30); GFR ESTIMATED > 60; GLUCOSE 111 MG/DL (70-105); POTASSIUM 3.3 MMOL/L (3.6-5.0); SODIUM 139 MMOL/L (135-145); TOTAL PROTEIN 7.9 GM/DL (6.4-8.2)
--- NOTE | 2018-06-28 18:27 | Diagnostic Imaging Report ---
PROCEDURE: CT head and CT cervical spine without contrast. TECHNIQUE: Multiple contiguous axial images were obtained through the brain and cervical spine without the use of intravenous contrast. Sagittal and coronal reformations through the cervical spine were then performed. Auto Exposure Controls were utilized during the CT exam to meet ALARA standards for radiation dose reduction. INDICATION: Head and neck injury with pain. CT HEAD: CT images of the head were obtained. FINDINGS: Ventricles and sulci are within normal limits for size. There is no intracranial hemorrhage identified. There is no abnormal mass effect or shift of midline structures. IMPRESSION: Unremarkable CT of the head. CT CERVICAL SPINE: EXAMINATION: Multiple contiguous axial CT images of the cervical spine were obtained with sagittal and coronal reformatted images produced. FINDINGS: The cervical curvature and alignment are within normal limits. The vertebral body heights and disc spaces are maintained without evidence of fracture or subluxation. There is no paraspinous hematoma. IMPRESSION: No CT evidence of acute cervical spinal abnormality. Dictated by: Dictated on workstation # [id number]
--- NOTE | 2018-06-28 18:40 | NUR ---
C-collar removed by Dr. Britton
[2018-06-28] MEDS ORDERED: RX-MUPIROCIN (BACTROBAN) 2% OINT 22 GM TUBE TOP STA (18:52)
[2018-06-28 19:18] VITALS: BP 126/74
== END 2018-06-28 19:18 | disposition home or self-care (01) ==
LOC: ER 17:42
DX: S09.90XA Unspecified injury of head, initial encounter (principal); S61.411A Laceration without foreign body of right hand, initial encounter; R40.2142 Coma scale, eyes open, spontaneous, at arrival to emergency department; R40.2252 Coma scale, best verbal response, oriented, at arrival to emergency department; R40.2362 Coma scale, best motor response, obeys commands, at arrival to emergency department; Z23 Encounter for immunization; Z90.89 Acquired absence of other organs; W28.XXXA Contact with powered lawn mower, initial encounter; Y92.009 Unspecified place in unspecified non-institutional (private) residence as the place of occurrence of the external cause
CPT/HCPCS: 36415; 70450; 71045; 72125; 73130; 80053; 80320; 85025; 85610; 85730; 90471; 90715; 93041

== ENCOUNTER 2018-10-21 21:55 | Emergency (ER) | payer BC ==
[~2018-10-21] VITALS: Ht 172.7 cm; Wt 83.9 kg
--- NOTE | 2018-10-21 22:46 | ED Upper Extremity ---
General Chief Complaint: Laceration Stated Complaint: FINGER LACERATION Source: patient Exam Limitations: no limitations History of Present Illness Date Seen by Provider: Oct 21, 2018 Time Seen by Provider: 22:44 Initial Comments ER with laceration to the pad of the right pointer finger from a beer bottle in the trash can at home. Tetanus is up-to-date. Onset: just prior to arrival Severity: moderate Pain/Injury Location: right 2nd finger Modifying Factors: Worse With Movement Allergies and Home Medications Allergies Coded Allergies: No Known Drug Allergies (Unverified , 06/28/18) Patient Home Medication List Home Medication List Reviewed: Yes Review of Systems Constitutional: see HPI EENTM: see HPI Respiratory: no symptoms reported Cardiovascular: no symptoms reported Genitourinary: no symptoms reported Musculoskeletal: no symptoms reported Skin: no symptoms reported Psychiatric/Neurological: No Symptoms Reported Past Rwfvwil-Oamwdr-Anhlge Hx Patient Social History Recent Foreign Travel: No Contact w/Someone Who Travel: No Recent Hopitalizations: No Immunizations Up To Date Tetanus Booster (TDap): More than 5yrs Seasonal Allergies Seasonal Allergies: No Past Medical History Surgeries: Yes (EGD) Adenoidectomy, Tonsillectomy Respiratory: No Cardiac: No Neurological: No Genitourinary: No Gastrointestinal: No Musculoskeletal: No Endocrine: No HEENT: Yes (S/P T&A) Tonsilitis Cancer: No Psychosocial: No ADD/ADHD Integumentary: No Blood Disorders: No Physical Exam Vital Signs Capillary Refill : Height, Weight, BMI Height: 5'8.00" Weight: 185lbs. oz. 83.176138tf; BMI Method:Stated General Appearance: WD/WN, no apparent distress Respiratory: no respiratory distress, no accessory muscle use Shoulder: normal inspection, non-tender Elbow/Forearm: normal inspection, non-tender Hand: no evidence of injury, Right, laceration (1 cm rather superficial laceration through the dermis but not into the subcutaneous tissue with minimal active bleeding to the pad of the finger. This was scrubbed with chlorhexidine/saline solution and closed with gauze.) Neurologic/Psychiatric: alert, normal mood/affect, oriented x 3 Skin: normal color, warm/dry Departure Impression Primary Impression: Finger laceration Qualified Codes: S61.210A - Laceration without foreign body of right index finger without damage to nail, initial encounter Disposition: 01 HOME, SELF-CARE Condition: Stable Departure-Patient Inst. Decision time for Depature: 22:46 Referrals: CIPRIANO SKAGGS MD (PCP/Family) Primary Care Physician Patient Instructions: Laceration Repair With Glue (DC) Add. Discharge Instructions: 1. Return to ER for any concerns. Follow-up with your doctor next All discharge instructions reviewed with patient and/or family. Voiced understanding. DALE YAN [employer] DEVELOPER Oct 21, 2018 22:46
[2018-10-21 22:48] VITALS: BP 138/80
== END 2018-10-21 22:50 | disposition home or self-care (01) ==
LOC: EDUNIT# 21:55 → ER 21:56
DX: S61.210A Laceration without foreign body of right index finger without damage to nail, initial encounter (principal); F90.9 Attention-deficit hyperactivity disorder, unspecified type; Z90.89 Acquired absence of other organs; W26.8XXA Contact with other sharp object(s), not elsewhere classified, initial encounter; Y92.009 Unspecified place in unspecified non-institutional (private) residence as the place of occurrence of the external cause